=== PATIENT | female | born 1975 | race Hispanic/Latino ===

== ENCOUNTER 2018-01-10 06:34 | Emergency (ER) | payer MEDICARE ==
[2018-01-10 07:21] LABS: APPEARANCE,URINE Cloudy (CLEAR); BILIRUBIN,URINE Negative (NEGATIVE); COLOR,URINE Yellow (YELLOW); GLUCOSE, URINE (UA) TRACE mg/dL (NEGATIVE); KETONES,URINE 15 mg/dL (NEGATIVE); LEUKOCYTE ESTERASE ,URINE Trace (NEGATIVE); NITRATE,URINE Negative (NEGATIVE); OCCULT BLOOD,URINE Negative (NEGATIVE); PROTEIN,URINE Trace (NEGATIVE)
[2018-01-10] MEDS ORDERED: SODIUM CHLORIDE 0.9% 1000ML 1,000 ML IV ONE (07:26)
[2018-01-10 07:27] LABS: BASOPHILS % (AUTO) 0.3 % (0.0-5.0); EOSINOPHILS % (AUTO) 0.3 % (0.0-8.0); HEMATOCRIT 41.7 % (36-48); LYMPHOCYTES % (AUTO) 26.1 % (21.0-51.0); MEAN CORPUSCULAR HEMOGLOBIN 30.2 pg (27.0-33.0); MEAN CORPUSCULAR HGB CONC 34.7 g/dL (32.0-36.0); MEAN CORPUSCULAR VOLUME 87.2 fL (79-99); MONOCYTES % (AUTO) 4.5 % (3.0-13.0); NEUTROPHILS % (AUTO) 68.8 % (40.0-77.0); PLATELET COUNT (AUTO) 357 K/uL (130-400); RED BLOOD CELL COUNT(AUTO) 4.78 MIL/uL (4.00-5.50); WHITE BLOOD COUNT (AUTO) 8.5 K/uL (4.8-10.8)
[2018-01-10] MEDS ORDERED: LORAZEPAM 2 MG/ML 1 ML VIAL ONE (07:27)
[2018-01-10 07:30] LABS: BACTERIA,URINE Rare /HPF (None Seen); RBC,URINE 0-1 /HPF (0-1); SQUAMOUS EPITHELIAL CELL,UR Few /HPF (0-2)
[2018-01-10 07:34] LABS: CREATININE 0.8 mg/dL (0.5-1.5); POTASSIUM 3.1 mmol/L (3.5-5.1)
[2018-01-10 07:38] LABS: HCG,QUAL RESULT NEGATIVE (NEGATIVE)
[2018-01-10 07:40] LABS: BILIRUBIN,TOTAL 0.7 mg/dL (0.2-1.0); TOTAL PROTEIN, SERUM 7.8 g/dL (6.0-8.3)
[2018-01-10 07:44] LABS: AMPHET/METH SCREEN,URINE NEGATIVE (NEGATIVE); BARBITURATE SCREEN, URINE NEGATIVE (NEGATIVE); BENZODIAZEPINES SCREEN,URINE NEGATIVE (NEGATIVE); CANNABINOID SCREEN,URINE NEGATIVE (NEGATIVE); COCAINE SCREEN,URINE NEGATIVE (NEGATIVE); OPIATE SCREEN,URINE NEGATIVE (NEGATIVE); PHENCYCLIDINE SCREEN,URINE NEGATIVE (NEGATIVE)
[2018-01-10] MEDS ORDERED: POTASSIUM BICARB/CIT AC 25 MEQ TABLET.EFF ONE (08:20)
== END 2018-01-10 09:00 | disposition home or self-care (01) ==
LOC: EDH 06:34
DX: F41.0 Panic disorder [episodic paroxysmal anxiety] (principal); I10 Essential (primary) hypertension; Z91.14 Patient's other noncompliance with medication regimen
CPT/HCPCS: 36415; 71045; 80053; 80305; 81001; 81025; 85025; 93005; 96374; 99285; J2060; J7030

== ENCOUNTER 2018-05-29 15:04 | Emergency (ER) | payer MEDICARE ==
[2018-05-29] MEDS ORDERED: LORAZEPAM 1 MG TABLET ONE (15:21)
== END 2018-05-29 17:19 | disposition home or self-care (01) ==
LOC: EDH 15:04
DX: F41.1 Generalized anxiety disorder (principal); R00.0 Tachycardia, unspecified; I10 Essential (primary) hypertension; Z88.0 Allergy status to penicillin
CPT/HCPCS: 93005

== ENCOUNTER 2018-05-31 12:32 | Emergency (ER) | payer MEDICARE ==
[2018-05-31 13:22] LABS: BASOPHILS % (AUTO) 0.2 % (0.0-5.0); EOSINOPHILS % (AUTO) 0.3 % (0.0-8.0); HEMATOCRIT 41.4 % (36-48); LYMPHOCYTES % (AUTO) 25.5 % (21.0-51.0); MEAN CORPUSCULAR HEMOGLOBIN 31.5 pg (27.0-33.0); MEAN CORPUSCULAR HGB CONC 35.5 g/dL (32.0-36.0); MEAN CORPUSCULAR VOLUME 88.6 fL (79-99); MONOCYTES % (AUTO) 4.2 % (3.0-13.0); NEUTROPHILS % (AUTO) 69.8 % (40.0-77.0); NUCLEATED RED BLOOD CELLS 0.1 % (0.0-0.19); PLATELET COUNT (AUTO) 306 K/uL (130-400); RED BLOOD CELL COUNT(AUTO) 4.67 MIL/uL (4.00-5.50); RED CELL DISTRIBUTION WIDTH 12.8 % (11.0-15.5); WHITE BLOOD COUNT (AUTO) 7.8 K/uL (4.8-10.8)
[2018-05-31 13:29] LABS: CREATININE 0.7 mg/dL (0.5-1.5); POTASSIUM 3.9 mmol/L (3.5-5.1)
[2018-05-31 13:33] LABS: INR 0.98 (0.85-1.15); PARTIAL THROMBOPLASTIN TIME 29.6 SEC (26.3-35.5); PROTHROMBIN TIME 10.3 SEC (9.6-11.6)
[2018-05-31 13:38] LABS: APPEARANCE,URINE Clear (CLEAR); BILIRUBIN,URINE Negative (NEGATIVE); COLOR,URINE Yellow (YELLOW); GLUCOSE, URINE (UA) Negative (NEGATIVE); KETONES,URINE Trace mg/dL (NEGATIVE); LEUKOCYTE ESTERASE ,URINE Trace (NEGATIVE); NITRATE,URINE Negative (NEGATIVE); OCCULT BLOOD,URINE Negative (NEGATIVE); PROTEIN,URINE Negative (NEGATIVE)
[2018-05-31 13:40] LABS: ALBUMIN 4.1 g/dL (3.5-5.0); BILIRUBIN,TOTAL 0.8 mg/dL (0.2-1.0); TOTAL PROTEIN, SERUM 8.2 g/dL (6.0-8.3)
[2018-05-31 13:47] LABS: AMPHET/METH SCREEN,URINE NEGATIVE (NEGATIVE); BARBITURATE SCREEN, URINE NEGATIVE (NEGATIVE); BENZODIAZEPINES SCREEN,URINE NEGATIVE (NEGATIVE); CANNABINOID SCREEN,URINE NEGATIVE (NEGATIVE); COCAINE SCREEN,URINE NEGATIVE (NEGATIVE); OPIATE SCREEN,URINE NEGATIVE (NEGATIVE); PHENCYCLIDINE SCREEN,URINE NEGATIVE (NEGATIVE)
[2018-05-31 14:00] LABS: BACTERIA,URINE Rare /HPF (None Seen); MUCUS,URINE Rare LPF (None Seen); RBC,URINE None Seen /HPF (0-1); SQUAMOUS EPITHELIAL CELL,UR Few /HPF (0-2); WBC,URINE None Seen /HPF (0-1)
[2018-05-31 14:05] LABS: B-TYPE NATRIURETIC PEPTIDE 14 pg/mL (0-100)
== END 2018-05-31 14:39 | disposition home or self-care (01) ==
LOC: EDH 12:32
DX: F41.1 Generalized anxiety disorder (principal); R07.89 Other chest pain; I10 Essential (primary) hypertension; Z88.0 Allergy status to penicillin
CPT/HCPCS: 36415; 71045; 80053; 80305; 81001; 82550; 83880; 84443; 84484; 84702; 85025; 85610; 85730; 93005

== ENCOUNTER 2018-06-01 20:41 | Emergency (ER) | payer MEDICARE ==
[2018-06-01] MEDS ORDERED: CHLORDIAZEPOXIDE HCL 25 MG CAP ONE (21:02)
== END 2018-06-01 21:23 | disposition home or self-care (01) ==
LOC: EDH 20:41
DX: F41.1 Generalized anxiety disorder (principal); I10 Essential (primary) hypertension; Z88.0 Allergy status to penicillin
CPT/HCPCS: 93005

== ENCOUNTER 2018-06-12 17:17 | Emergency (ER) | payer MEDICARE ==
[2018-06-12] MEDS ORDERED: LORAZEPAM 1 MG TABLET ONE (18:00)
[2018-06-12] MEDS ORDERED: CHLORDIAZEPOXIDE HCL 25 MG CAP ONE ×2 (18:00→18:01)
== END 2018-06-12 19:37 | disposition home or self-care (01) ==
LOC: EDH 17:17
DX: F41.8 Other specified anxiety disorders (principal); G47.00 Insomnia, unspecified; I10 Essential (primary) hypertension; Z88.0 Allergy status to penicillin

== ENCOUNTER 2024-10-03 14:07 | Emergency (ER) | payer MEDICARE ==
[~2024-10-03] VITALS: Ht 147.3 cm; Wt 72.6 kg
[2024-10-03 14:15] VITALS: BP 178/93; PULSE 105; RESP 20; TEMP 98.9; O2SAT 99
--- NOTE | 2024-10-03 14:20 | ERN ---
ED Note History of Present Illness Stated Complaint: ANXIETY Chief Complaint: Anxiety/Panic Attack Time Seen by MD: 14:08 Dictation: PATIENT IS A 49-YEAR-OLD FEMALE HERE WITH HER DAUGHTER AND MOTHER WITH COMPLAINTS OF HAVING ANXIETY REACTION AND A PANIC ATTACK THIS MORNING. SHE STATES THEY ARE GOING TO BE DRIVING THYROID LABS FOR HER ON SATURDAY AND SHE IS AFRAID OF THE RESULTS. SHE SAID THE LABS HAVE NOT BEEN DRAWN YET. SHE STATES SHE HAS BEEN FEELING THIS WAY FOR SEVERAL DAYS, SHE TAKES ATIVAN 0.5 MG P.O. B.I.D. AND TOOK IT THIS MORNING. SHE DENIES SUICIDAL OR HOMICIDAL IDEATION. NO CHEST PAIN NO BACK PAIN. Allergies: Coded Allergies: No Known Drug Allergies (Unverified Allergy, Unknown, 10/03/24) Past Medical History Past Medical History: Anxiety, Depression, High Cholesterol, Hypertension Surgical History: None History: Not Applicable RN Note Reviewed/Agreed w/PFSH: Yes Review of System Dictation CONSTITUTIONAL: NEGATIVE EXCEPT FOR HPI HEAD/FACE: NEGATIVE EXCEPT FOR HPI EENT: NEGATIVE EXCEPT FOR HPI RESPIRATORY: NEGATIVE EXCEPT FOR HPI GASTROINTESTINAL/ABDOMINAL: NEGATIVE EXCEPT FOR HPI GENITOURINARY: NEGATIVE EXCEPT FOR HPI MUSCULOSKELETAL: NEGATIVE EXCEPT FOR HPI INTEGUMENTARY: NEGATIVE EXCEPT FOR HPI NEUROLOGICAL/PSYCH: NEGATIVE EXCEPT FOR HPI ANXIETY/PANIC ATTACK HEMATOLOGIC/LYMPHATIC: NEGATIVE EXCEPT FOR HPI ALL SYSTEMS NEGATIVE, EXCEPT NOTED ABOVE. 13 POINT REVIEW OF SYSTEMS ASSESSED AND ALL NEGATIVE EXCEPT FOR ABOVE. Initial Vital Sign VS Vital Signs Date Time Temp Pulse Resp B/P (MAP) Pulse Ox O2 Delivery O2 Flow Rate FiO2 10/03/24 14:11 99.0 105 20 178/93 99 Room Air 0 10/03/24 14:15 21 Physical Exam Dictation VITAL SIGNS REVIEWED GENERAL APPEARANCE: ALERT, ORIENTED X 3, NO ACUTE DISTRESS, WELL DEVELOPED, NOURISHED. ANXIOUS, DENIES SUICIDAL OR HOMICIDAL IDEATION. HEAD AND FACE: NON-TRAUMATIC. EYES: PERRL, PINK CONJUNCTIVAS, EYELID NO TRAUMA, ANTERIOR CHAMBER WITH ARCUS S ENILIS. EARS: PINNAS INTACT AND NO SIGNS OF TRAUMA OR ERYTHEMA EAR CANALS CLEAR AND NO DISCHARGE TM NO ERYTHEMA NOSE: NO DISCHARGE, NO BLEEDING. OROPHARYNX: MOUTH NORMAL, TONGUE PINK, PHARYNX CLEAR,NO ERYTHEMA, TONSILS NO EXUDATES, NO ABSCESSES NOTED, MUCOUS MEMBRANE MOIST NECK: SUPPLE, NON-TENDER, NO THYROMEGALY, NO MASSES, NO JVD, NO BRUITS BREAST:DEFERRED CHEST:NO TENDERNESS, NO CREPITUS, NO PARADOXICAL MOVEMENT, NO RETRACTIONS LUNGS:CLEAR, WELL-VENTILATED, SYMMETRIC, NO RALES, NO WHEEZING, NO RHONCHI, NO STRIDOR, GOOD BREATH SOUNDS BILATERALLY HEART: REGULAR RATE, REGULAR RHYTHM, NO MURMUR, NO GALLOPS VASCULAR: NO PERIPHERAL EDEMA, ABDOMEN: SOFT, POSITIVE BOWEL SOUNDS, NONDISTENDED, NO GUARDING, NONTENDER, NO REBOUND, NO MASSES NO HEPATOMEGALY, NO SPLENOMEGALY, NO PLASCENCIA'S SIGN, NO HERNIAS. RECTAL: DEFERRED GENITAL: DEFERRED NEUROLOGICAL: NORMAL SPEECH, MOTOR FUNCTION INTACT, SENSORY FUNCTION INTACT ALERT AND ORIENTED X4, SPEECH IS CLEAR, BLUNTED AFFECT. MUSCULOSKELETAL: NECK NONTENDER, FULL RANGE OF MOTION, BACK NONTENDER, FULL RANGE OF MOTION, EXTREMITIES: NONTENDER, FULL RANGE OF MOTION SKIN: COLOR PINK, DRY, NO TURGOR, NO RASH, NO LACERATIONS, NO ABRASIONS, NO CONTUSIONS. LYMPHATIC: DEFERRED Results (Laboratory/Radiology) Labs Reviewed?: Yes ED Course ED Course Orders Procedure Category Date Status Time Lorazepam 2 Mg PHA 10/03/24 Verified (Ativan) 14:30 Vital Signs Date Time Temp Pulse Resp B/P (MAP) Pulse Ox O2 Delivery O2 Flow Rate FiO2 10/03/24 14:15 99.0 105 20 178/93 99 Room Air* 0 21 10/03/24 14:11 99.0 105 20 178/93 99 Room Air 0 1420/SPOKE WITH PATIENT AND FAMILY AT LENGTH AND LONG THERE IS NO SUICIDAL OR HOMICIDAL IDEATION. I WILL TREAT FOR ACUTE ANXIETY AND PANIC ATTACK WITH SOME ATIVAN IM AND TOLD PATIENT AND HER FAMILY TO INCREASE IT TO 1 MG AT HOME B.I.D. UNTIL THEY SEE THEIR DOCTOR SATURDAY. ADDITIONALLY RETURN TO THE EMERGENCY ROOM IMMEDIATELY OR NOTIFY POLICE IF SUICIDAL OR HOMICIDAL IDEATIONS BY THE PATIENT Medical Decision Making MDM MEDICAL DECISION-MAKING BASED ON EMPIRIC TREATMENT OF ACUTE ANXIETY/PANIC ATTACK. NO LABS OR IMAGING WE WILL BE GIVEN ATIVAN 1 MG IM AND INCREASE HER B.I.D. DOSING TO 1 MG. RETURN TO THE EMERGENCY ROOM IF ANY SUICIDAL OR HOMICIDAL IDEATION DX & DISP Disposition: Discharge Departure Impression: Primary Impression: Panic attack Condition: Stable Additional Instructions: FOLLOW-UP WITH PRIMARY CARE PROVIDER IN 1 TO 2 DAYS. TAKE MEDICATIONS DIRECTED HERE IN THE EMERGENCY ROOM. OKAY TO CONTINUE HOME MEDICATIONS UNLESS OTHERWISE DISCUSSED DURING YOUR VISIT IN THE EMERGENCY ROOM TODAY. RETURN TO YOUR NEAREST EMERGENCY ROOM IF SYMPTOMS WORSEN OR IF THERE IS NO IMPROVEMENT. CALL 911 IF YOU NEED IMMEDIATE ASSISTANCE. TAKE TYLENOL OR MOTRIN [id number] NEEDED AND IF NO CONTRAINDICATIONS ARE PRESENT. INCREASE ORAL HYDRATION. A WOUND CULTURE OR URINE CULTURE WAS ORDERED HERE IN THE EMERGENCY ROOM DEPARTMENT PLEASE FOLLOW-UP WITH PRIMARY CARE PROVIDER AND ADVISE THEM TO GET REPEAT PORTS FROM OUR FACILITY. IF YOU HAD ANY TACO WRAP/SPLINTS THAT WERE APPLIED HERE, PLEASE DO NOT REMOVE THEM UNTIL YOU SEE YOUR PRIMARY CARE OR SPECIALTY. INCREASE YOUR ATIVAN TO 1 MG TWICE A DAY NEEDED FOR ANXIETY. SEE YOUR PRIMARY CARE DOCTOR ON SATURDAY WITHOUT FAIL FOR FOLLOW UP AND MANAGEMENT. RETURN TO THE EMERGENCY ROOM IMMEDIATELY IF ANY THOUGHTS OF SUICIDAL OR HOMICIDAL IDEATION Referrals: NEVILLE HANDY MD (PCP) Time of Disposition: 14:20 I have reviewed the case, and I agree with, Diagnosis and Plan PEDRO PABLO HERNÁNDEZ NP Oct 03, 2024 14:20
[2024-10-03] MEDS: LORazepam 2 MG/ML 1 ML VIAL IM ONE (14:42)
== END 2024-10-03 14:52 | disposition home or self-care (01) ==
LOC: EDH 14:07
DX: F41.9 Anxiety disorder, unspecified (principal); I10 Essential (primary) hypertension; E78.00 Pure hypercholesterolemia, unspecified; F32.A Depression, unspecified
CPT/HCPCS: 99283; 96372; J2060